=== PATIENT | male | born 1955 | race Caucasian/White ===

== ENCOUNTER 2016-06-19 10:08 | Outpatient (CLI) | payer BC ==
[2016-06-19 11:20] LABS: #Basophils 0.1 thou/uL (0.0-0.2); #Eosinphils 0.2 thou/uL (0.0-0.7); #Lymphocytes 1.4 thou/uL (1.20-3.40); #Monocytes 0.9 thou/uL (0.11-0.59); #Neutrophils 5.5 thou/uL (1.40-6.50); %Basophils 0.7 % (0.0-1.0); %Eosinophils 2.5 % (0.0-10.0); %Lymphocytes 17.8 % (21.0-51.0); %Monocytes 10.7 % (0.0-10.0); %Neutrophils 68.4 % (42.0-75.0); Hemoglobin 17.2 g/dL (14.0-18.0); Mean Corpuscular HGB CONC 33.5 g/dL (32.0-36.0); Mean Corpuscular Hemoglobin 31.3 pg (27.0-31.0); Mean Corpuscular Volume 93.6 fl (80.0-94.0); Mean Platelet Volume 12.2 fL (7.4-10.4); Platelet Count 159 thou/uL (130-400); Red Blood Cell (RBC) Count 5.48 mill/uL (4.70-6.10)
[2016-06-19 11:29] LABS: ALT (SGPT) 32 U/L (8-55); AST (SGOT) 22 U/L (5-34); Albumin 4.2 g/dL (3.4-4.8); Alkaline Phosphatase 70 U/L (40-150); Anion Gap 12 mmol/L (10-20); BUN (Urea Nitrogen) 13 mg/dL (8.4-25.7); Bilirubin, Total 0.8 mg/dL (0.2-1.2); Calc. Creatinine Clearance 0 mL/min (70-130); Calcium 9.3 mg/dL (7.8-10.44); Carbon Dioxide 24 mmol/L (23-31); Cardiac Risk 3.4 (Less than 4.5); Chloride 109 mmol/L (98-107); Cholesterol 186 mg/dl (< 200 Desired); Estimated GFR-MDRD 75; Globulin 2.8 g/dL (2.4-3.5); Glucose 97 mg/dL (80-115); HDL Cholesterol 55 mg/dL (>60 Neg Risk); LDL Cholesterol, Calculated 119 mg/dL; Potassium 4.6 mmol/L (3.5-5.1); Sodium 140 mmol/L (136-145); Triglycerides 59 mg/dL (Less than 150)
== END 2016-06-19 10:09 | disposition home or self-care (01) ==
LOC: HPCALD 10:08
PROVIDERS: ATTEND Family Medicine
DX: I25.119 Atherosclerotic heart disease of native coronary artery with unspecified angina pectoris (principal); M25.50 Pain in unspecified joint
CPT/HCPCS: 36415; 80053; 80061; 84443; 85025

== ENCOUNTER 2019-10-19 07:51 | Outpatient (CLI) | payer MEDICARE, OTHER ==
--- NOTE | 2019-10-19 21:20 | CT ---
CT OF THE CHEST WITHOUT CONTRAST: 10/19/[address] of the chest was performed or evaluation of pain in the anterior chest wall in the left cos sanjay region near the diaphragm. There is a prior history of hiatal hernia repair. The scan started jus t above the apices of the lungs and extended into the upper abdomen to about the mid-renal level. No definite traumatic change or significant pathology was seen. Initially, there were some unusual li filiberto seen in the costal cartilage of one of the lower left anterior ribs near its articulation with th e xiphoid portion of the sternum. However, on inspection in multiple planes, this appears to be actua lly two ribs adjacent each other caught perfectly on the cut, rather than a fracture. When I look at the same area in two other planes, I see no bony or obvious cartilage abnormality. Thus, I could not confirm any chest wall process to explain the patient's pain. The mediastinum appeared normal for a noncontrast study within its limitations. Arteriosclerotic aquino ge is present but is not excessive. There is probably a small amount of calcification in the proximal portions of the LAD. No mediastinal mass or hematoma was seen. There is no adenopathy. The lungs are clear. No infiltrate, effusion or nodule was seen. The thoracic spine shows some degenerative changes. There is an anterior compression of the T8 verteb ral body with reduction of anterior height by about 50%. There may be the beginnings of some compress ion of T10, but this is less prominent. Mild dorsal kyphosis is present. The scans went into the upper abdomen. Sutures from the prior hiatal hernia surgery are evident. The visible portions of the liver, spleen, and pancreas were unremarkable. No bowel or stomach abnormali ties of concern were detected. The upper half of each kidney was unremarkable, as was the upper abdom inal aorta. IMPRESSION: No definite findings to explain the patient's left costal symptoms. The only questionable area seen w as near where costal cartilage joins the xiphoid process on the left side. But this appeared more li ke an artifact of the scan cut as this area looked normal when viewed in other planes. POS: HOME
== END 2019-10-19 07:52 | disposition home or self-care (01) ==
LOC: BURCT 07:51
PROVIDERS: ATTEND Family Medicine
DX: R07.81 Pleurodynia (principal)
CPT/HCPCS: 71250